=== PATIENT | male | born 1995 | race Hispanic/Latino ===

== ENCOUNTER 2020-02-23 19:27 | Emergency (ER) | payer OTHER, SELFPAY ==
[2020-02-24 12:19] LABS: SARS-CoV-2 MS2 Positive; SARS-CoV-2 N Gene Positive; SARS-CoV-2 S Gene Positive; SARS-CoV-2 orf1ab Positive
== END 2020-02-23 20:03 | disposition home or self-care (01) ==
LOC: ERS 19:27
DX: U07.1 COVID-19 (principal); M54.5 Low back pain; R50.9 Fever, unspecified; R11.0 Nausea
CPT/HCPCS: 87635; 99283; U0003

== ENCOUNTER 2020-03-04 12:53 | Emergency (ER) | payer OTHER ==
[2020-03-05 16:04] LABS: SARS-CoV-2 MS2 Positive; SARS-CoV-2 N Gene Positive; SARS-CoV-2 S Gene Positive; SARS-CoV-2 orf1ab Positive
== END 2020-03-04 13:45 | disposition home or self-care (01) ==
LOC: ERS 12:53
DX: U07.1 COVID-19 (principal)
CPT/HCPCS: 87635; 99283; U0003